=== PATIENT | female | born 1970 | race Caucasian/White ===

== ENCOUNTER → 2024-06-02 14:29 | Outpatient (REF) | payer OTHER, SELFPAY ==
[2024-06-03 19:57] LABS: Rubella Positive
== END ==
LOC: OHS 14:29
PROVIDERS: ATTENDING PHYSICIAN Nurse Practitioner Family
DX: Z23 Encounter for immunization (principal)
CPT/HCPCS: 36415; 86735; 86762; 86765; 86787